=== PATIENT | female | born 1940 | race Caucasian/White ===

== ENCOUNTER 2018-01-27 08:39 | Inpatient (IN) | payer OTHER ==
[2018-01-20 15:19] VITALS: BMI 24.0
--- NOTE | 2018-01-21 13:13 | PAT Medication Instructions ---
Service Date Jan 21, 2018. Current Home Medication List Acetaminophen (Tylenol), Unknown Dose PO UD PRN for Pain Apixaban (Eliquis), 2.5 MG PO BID Bupropion (Wellbutrin-Xl), 150 MG PO QAM Cholecalciferol (Vitamin D3), 1 CAP PO QPM Clobetasol Propionate (Clobetasol Propionate Cream 0.05%), 1 APPLN EXT BID Cyanocobalamin (Vitamin B-12), Unknown Dose PO QAM Ferrous Sulfate (Kp Ferrous Sulfate), 1 TAB PO BID Furosemide (Lasix), 40 MG PO QAM Hydroxyzine Pamoate (Vistaril), 1 CAP PO BID Losartan Potassium (Cozaar), 50 MG PO QAM Magnesium Oxide (Mag-Ox), 400 MG PO BID Metoprolol Tartrate (Lopressor) (Lopressor), 50 MG PO BID Mupirocin 2% (Bactroban 2%), 1 APPLN EXT BID Pantoprazole (Pantoprazole Sodium), 1 TAB PO QAM Pitavastatin Calcium (Livalo), 1 MG PO QPM Potassium Ext Rel (Klor-Con), 20 MEQ PO QAM Rosuvastatin Calcium (Rosuvastatin Calcium), Unknown Dose PO BID Triamcinolone Acetonide (Topic (Triamcinolone Acet 0.025%), Unknown Dose TOP UD PRN for PRN Zinc Sulfate (Zinc Sulfate), 220 MG PO QAM Medication Instructions For Your Scheduled Surgery -Check with your surgeon and insole taper for instructions for: Apixaban (Eliquis), 2.5 MG PO BID *MUST BE HELD FOR AT LEAST 72 HOURS FOR SPINAL ANESTHESIA - Hold the following medications 24 hours prior to surgery: Clobetasol Propionate (Clobetasol Propionate Cream 0.05%), 1 APPLN EXT BID Mupirocin 2% (Bactroban 2%), 1 APPLN EXT BID Triamcinolone Acetonide (Topic (Triamcinolone Acet 0.025%), Unknown Dose TOP UD PRN for PRN - Hold the following medications the morning of surgery: Cyanocobalamin (Vitamin B-12), Unknown Dose PO QAM Ferrous Sulfate (Kp Ferrous Sulfate), 1 TAB PO BID Furosemide (Lasix), 40 MG PO QAM Losartan Potassium (Cozaar), 50 MG PO QAM Magnesium Oxide (Mag-Ox), 400 MG PO BID Potassium Ext Rel (Klor-Con), 20 MEQ PO QAM Zinc Sulfate (Zinc Sulfate), 220 MG PO QAM - Take the following medications the morning of surgery with a sip of water: Acetaminophen (Tylenol), Unknown Dose PO UD PRN for Pain (if needed, may be taken up to four hours before surgery) Bupropion (Wellbutrin-Xl), 150 MG PO QAM Hydroxyzine Pamoate (Vistaril), 1 CAP PO BID Metoprolol Tartrate (Lopressor) (Lopressor), 50 MG PO BID Pantoprazole (Pantoprazole Sodium), 1 TAB PO QAM Rosuvastatin Calcium (Rosuvastatin Calcium), Unknown Dose PO BID - Take the following medications as scheduled the night before surgery: Acetaminophen (Tylenol), Unknown Dose PO UD PRN for Pain (if needed) Cholecalciferol (Vitamin D3), 1 CAP PO QPM Ferrous Sulfate (Kp Ferrous Sulfate), 1 TAB PO BID Hydroxyzine Pamoate (Vistaril), 1 CAP PO BID Magnesium Oxide (Mag-Ox), 400 MG PO BID Metoprolol Tartrate (Lopressor) (Lopressor), 50 MG PO BID Pitavastatin Calcium (Livalo), 1 MG PO QPM Rosuvastatin Calcium (Rosuvastatin Calcium), Unknown Dose PO BID If you have any questions please call us at [phone] or [phone] or [phone]
--- NOTE | 2018-01-21 14:27 | DIAGNOSTIC IMAGING REPORT ---
CHEST 2 VIEWS ROUTINE CLINICAL HISTORY: PAT preoperative evaluation COMPARISON STUDY: No previous studies for comparison. FINDINGS: Old rib fractures bilaterally. These are considered healed. Minimal associated pleural reactive change. Mild emphysematous change. No acute infiltrate. IMPRESSION: Chronic change. No acute process. The above report was generated using voice recognition software. It may contain grammatical, syntax or spelling errors. Electronically signed by: Tee Ho M.D. 01/21/2018 2:26 PM Dictated Date/Time: 01/21/2018 2:25 PM
[2018-01-21 14:51] LABS: BASO % 0.5 %; BASO ABS # 0.05 K/uL (0-0.2); EOS % 21.3 %; EOS ABS # 2.18 K/uL (0-0.5); HEMATOCRIT 32.2 % (37-47); HEMOGLOBIN 10.2 g/dL (12.0-16.0); IG# 0.03 K/uL (0.00-0.02); LYMPH % 9.5 %; LYMPH ABS # 0.97 K/uL (1.2-3.4); MEAN CELL VOLUME 98.5 fL (80-100); MEAN CORPUSCULAR HEMOGLOBIN 31.2 pg (25-34); MEAN CORPUSCULAR HGB CONC 31.7 g/dl (32-36); MEAN PLATELET VOLUME 8.5 fL (7.4-10.4); MONO % 9.2 %; MONO ABS # 0.94 K/uL (0.11-0.59); NEUT % 59.2 %; NEUT ABS # 6.06 K/uL (1.4-6.5); PLATELET COUNT 298 K/uL (130-400); RED CELL DISTRIBUTION WIDTH SD 57.8 fL (36.4-46.3); WHITE BLOOD COUNT 10.23 K/uL (4.8-10.8)
[2018-01-21 14:59] LABS: CALCIUM 9.5 mg/dl (8.5-10.1); CREATININE 1.14 mg/dl (0.60-1.20); POTASSIUM 5.2 mmol/L (3.5-5.1)
[2018-01-21 15:02] LABS: PTT PATIENT 30.1 SECONDS (21.0-31.0)
--- NOTE | 2018-01-23 11:58 | HISTORY & PHYSICAL EXAMINATION ---
DATE OF ADMISSION: 01/27/2018 CHIEF COMPLAINT: Persistent right pain, discomfort and nonunion after distal femur fracture. HISTORY OF PRESENT ILLNESS: Patient is a 77-year-old female from [place] who presents for surgical treatment of her right leg. She has a pretty complex history over the past year related to this right leg. She had sustained a distal femur fracture from a fall back in February. She was seen in [place] and underwent ORIF with bone grafting of the right distal femur that got infected. Apparently this is a pseudomonas infection. She was referred to [facility] where she underwent hardware removal in April of last year and then external fixation placement. The external fixator was then taken off later. She continues to have persistent pain, discomfort and inability to get around. The fracture never healed. She has been through extensive antibiotic treatment and now off antibiotics. Her cultures did grow out Pseudomonas but has been off antibiotics for a couple months. She can ambulate. She developed ulcers on her right heel and Achilles area. She now presents for definitive treatment/amputation. We talked about treatments in the past and I do not think she is really a candidate for anything else. A hinged knee replacement would be possible but with her significant history of infection, elevated sed rate and C-reactive protein and sores on her Achilles I do not think this is appropriate intervention. PAST MEDICAL HISTORY: Significant for: 1. Hypertension. 2. Elevated cholesterol. 3. Gastroesophageal reflux disease. 4. Easy bruising, on Eliquis for DVT prophylaxis only. PAST SURGICAL HISTORY: Include: 1. Right ankle fracture surgery. 2. T and A. 3. D and C. 4. Right femur surgery x3. ALLERGIES: CODEINE AND ALL NARCOTICS WHICH CAUSE RESPIRATORY DEPRESSION. CURRENT MEDICATIONS: Include 1. Hydroxyzine 25 mg twice a day. 2. Triamcinolone cream topically. 3. Iron sulfate 325 twice a day. 4. Zinc sulfate 220 once a day. 5. Magnesium oxide 400 mg twice a day. 6. Metoprolol 50 mg twice a day. 7. Vitamin D3. 8. Furosemide 40 mg in the morning. 9. Losartan 50 mg a day. 10. Potassium chloride 20 mEq a day. 11. Eliquis 2.5 mg twice a day. 12. Vitamin B12. 13. Clobetasol cream. 14. Bactroban cream. 15. Wellbutrin 150 mg a day. 16. Rosuvastatin 5 mg. 17. Livalo 1 mg a day. SOCIAL HISTORY: A 77-year-old female. Patient is from [place]. with 3 children. Rare alcohol intake. FAMILY HISTORY: Significant for heart disease. REVIEW OF SYSTEMS: Negative for diabetes. Denies any current chest pain or shortness of breath. No recent fevers, drainage or redness around her leg. No history of DVT, but she is on Eliquis prophylactically. PHYSICAL EXAMINATION: GENERAL: Physical exam shows frail elderly female, looks older than her stated age. HEENT: Benign. NECK: Supple. No lymphadenopathy. LUNGS: Clear to auscultation. HEART: Has a regular rate and rhythm. ABDOMEN: Soft, nontender, nondistended. EXTREMITIES: Grossly neurovascularly intact except as follows: Examination of the right leg reveals the patient comes in a wheelchair. She has multiple scars around her leg, particularly in the lateral side with a very puckered scarred lateral incision about correction up her femur. There is no real redness and warmth. There is obvious deformity to her leg with a prominent anterior lateral. She cannot really bend her knee much at all. She can dorsiflex and plantarflex her foot appropriately. She does have a large eschar about 5 cm over her Achilles tendon area which is full thickness. There are no active signs of infection. X-RAYS: X-rays of the femur reveal a distal femoral nonunion. There are multiple holes from the previous ORIF as well as external fixation. There is some heterotopic bone and some bone around the fracture site. There is obvious deformity. She has got diffuse osteopenia. ASSESSMENT: A 77-year-old female, now 11 months out from a right distal femur fracture complicated by open reduction internal fixation and infection and a nonunion. She does not look clinically to have an infection at this point but her sed rate and C-reactive protein are still elevated. She got multiple sores on her foot. She has failed attempt at fixation. PLAN: We talked about treatment options. Options come down to amputation versus some attempt at reconstruction. With her history of infection, elevated sed rate and C-reactive protein and chronic sores on her foot, I think any reconstruction would be high risk and likely to be infected. After further discussion, we are going to proceed with above-knee amputation. We will take her to the operating room and do right above knee amputation. The risks and benefits of this procedure were explained to the patient include but not limited to DVT, PE, , infection, neurological injury, vascular injury, bleeding problem, pain, limited range of motion, stiffness, failure to relieve symptoms, incomplete relief of symptoms, need for further surgery in the future, fracture, leg length inequality, nerve palsy, persistent pain, drainage and recurrence of infection. She was made aware of all this including the recurrence of infection and she is aware and would like to proceed. Patient does have a questionable history of an MRSA infection in the past so we are going to use some vancomycin preoperatively. She will need a several-day stay in the hospital. She is anemic and it is highly likely she will need some degree of blood transfusion with this surgery. She is aware of this. We talked about taking her metoprolol the morning of surgery and holding her Lasix. She will continue iron supplementation. We will likely continue the Eliquis for about 2 weeks postop and that is probably about it.
[~2018-01-27] VITALS: Ht 158.8 cm; Wt 61.8 kg
[2018-01-27] VITALS (8 sets, daily range): BP systolic 107–141; BP diastolic 52–66; PULSE 70–91; TEMP 36–36.8; O2SAT 94–99; Ht 158.8 cm; Wt 61.8 kg
[~2018-01-27 08:39] MED LIST: ACET-1256 PO; APIX1TAB PO; BCTCR/30 EXT; BUPRTAB51 PO; CEFAZOLIN 2000MG IV PUSH 15 ML IV SCH; CHOL2000 PO; CLBCRM30 EXT; CYAN250T PO; FERR1TAB13 PO; FRS/40 PO; GENTAMICIN CONSULT ACTIVE PRN; GENTAMICIN INJ 80 MG in DEXTROSE 5% 100ML 100 ML IV SCH; HYDR25CA PO; LACTATED RINGER'S 1000ML 1,000 ML IV SCH; LACTATED RINGER'S 1000ML 500 ML IV SCH; LACTATED RINGER'S 1000ML IV SCH; LOSA50TA6 PO; MAGN400T6 PO; METO50TA16 PO; PANT40TA2 PO; PITA1TAB PO; POTA-639 PO; ROSU5TAB11 PO; TRMO2580 TOP; VANCOMYCIN 1GM/270ML NSS IV SCH; VANCOMYCIN CONSULT ACTIVE PRN; VANCOMYCIN IV 1,000 MG in SODIUM CHLORIDE 0.9% 250ML 250 ML IV STA; ZINC1CAP PO
--- NOTE | 2018-01-27 09:31 | History & Physical Bridge Note ---
H&P Re-Evaluation Bridge Note: I have examined the patient, reviewed the History & Physical and in the interval since the performance of the History & Physical I have noted the following changes of clinical significance: No changes noted
[2018-01-27 09:34] LABS: CALCIUM 9.7 mg/dl (8.5-10.1); CREATININE 1.35 mg/dl (0.60-1.20); POTASSIUM 5.3 mmol/L (3.5-5.1)
[2018-01-27] MEDS ORDERED: ATROPINE SULFATE 0.1 MG/ML 5ML SYR IV PRN (09:45)
[2018-01-27] MEDS ORDERED: ONDANSETRON INJ 2 MG/ML 2 ML VIAL IV PRN ×2 (09:45→13:45)
[2018-01-27] MEDS ORDERED: FENTANYL CITRATE INJ 50 MCG/1 ML 2 ML VIAL IV PRN (09:45)
[2018-01-27] MEDS ORDERED: EpHEDrine SULFATE INJ 50 MG/ML AMP IV PRN (09:45)
[2018-01-27] MEDS ORDERED: ROPIVACAINE 0.5% 5 MG/ML 30 ML VIAL ONE (11:02)
[2018-01-27] MEDS ORDERED: FENTANYL CITRATE INJ 50 MCG/1 ML 2 ML VIAL ONE ×2 (11:07→12:27)
[2018-01-27] MEDS ORDERED: BUPIVACAINE/EPINEPHRINE 0.5% MPF 1:200,000 30 ML VIAL ONE (11:33)
[2018-01-27] MEDS ORDERED: BACITRACIN 50000 UNIT VIAL ONE (11:35)
[2018-01-27] MEDS ORDERED: ONDANSETRON INJ 2 MG/ML 2 ML VIAL ONE (12:46)
[2018-01-27] MEDS ORDERED: PROPOFOL IV EMULSION 10 MG/ML 20 ML VIAL ONE (12:46)
[2018-01-27] MEDS ORDERED: LIDOCAINE HCL 2% 2 ML VIAL (20MG/ML) ONE (12:46)
[2018-01-27] MEDS ORDERED: VASOPRESSIN 20 UNIT/ML VIAL ONE (12:47)
[2018-01-27] MEDS ORDERED: PHENYLEPHRINE 100MCG/ML 5ML SYR ONE (12:47)
--- NOTE | 2018-01-27 13:14 | Anesthesiology Progress Note ---
Anesthesia Progress Note Date of Service Jan 27, 2018. Progress Notes Arterial line placed in OR at 1235 in preparation for right AKA with Dr. Harris. Left and right wrist prepped with chlorhexidine. Attempts made on left and write arm with final successful placement achieved in the left radial. During this attempt there was no return of pulsatile flow despite US verification of placement, therefore, catheter advanced through artery and then withdrawn until pulsatile flow. Catheter then threaded using seldinger. Site covered with occlusive dressing and taped in place. Waveform consistent with correct arterial placement. After placement, fingers of right hand had normal perfusion. Patient tolerated procedure well without complications. Haylee Bush MD, PhD
--- NOTE | 2018-01-27 13:38 | [facility] Post Operative Brief Note ---
Immediate Operative Summary Operative Date Jan 27, 2018. Pre-Operative Diagnosis Right distal femur leg non-union Post-Operative Diagnosis Same Procedure(s) Performed Right above knee amputation Surgeon Dr. Major Harris Policy Services Representative Surgeon(s) Lance Starks PA-C Estimated Blood Loss 150cc Findings Consistent with Post-Op Diagnosis Specimens A. Right lower leg Drains None Anesthesia Type General Regional Complication(s) none Disposition Accompanied Pt To Recover: no Disposition: Recovery Room / PACU Overlapping Procedure I was present for: the critical portions of procedure. I was immediately available: during the entire case
[2018-01-27] MEDS ORDERED: POTASSIUM CHLORIDE INJ 10 MEQ in SODIUM CHLORIDE 0.9% 1000ML 1,000 ML IV SCH (13:41)
[2018-01-27] MEDS ORDERED: BISACODYL 10 MG SUPP PR PRN (13:45)
[2018-01-27] MEDS ORDERED: METOCLOPRAMIDE HCL INJ 5 MG/ML 2 ML VIAL IV PRN (13:45)
[2018-01-27] MEDS ORDERED: VANCOMYCIN CONSULT ACTIVE PRN (13:45)
[2018-01-27] MEDS ORDERED: DiphenhydrAMINE HCL 50 MG/ML VIAL IV PRN (13:45)
[2018-01-27] MEDS ORDERED: VANCOMYCIN IV 0 MG in SODIUM CHLORIDE 0.9% 500ML 500 ML IV SCH (13:45)
[2018-01-27] MEDS ORDERED: MAGNESIUM HYDROXIDE SUSP 30 ML UDC PO PRN (13:45)
[2018-01-27] MEDS ORDERED: ALUMINUM/MAGNESIUM/SIMETH (MAALOX MAX) 30 ML UDC PO PRN (13:45)
[2018-01-27] MEDS ORDERED: GENTAMICIN CONSULT ACTIVE PRN (14:00)
--- NOTE | 2018-01-27 14:35 | Anesthesiology Progress Note ---
Anesthesia Post Op Note Date & Time Jan 27, 2018 at 14:33 Vital Signs Pain Intensity: 0 Vital Signs Past 12 Hours Date Time Temp Pulse Resp B/P (MAP) Pulse Ox O2 Delivery O2 Flow Rate FiO2 01/27/18 14:20 36.2 76 2 137/58 95 Nasal Cannula 2 01/27/18 14:04 75 17 01/27/18 14:04 75 17 99 01/27/18 14:02 150/48 01/27/18 13:59 73 14 01/27/18 13:59 73 14 99 01/27/18 13:56 146/46 01/27/18 13:54 72 16 01/27/18 13:54 71 16 99 01/27/18 13:51 139/47 01/27/18 13:49 73 13 100 01/27/18 13:49 72 13 01/27/18 13:45 155/56 01/27/18 13:44 36.2 73 16 155/56 100 Oxymask 10 01/27/18 09:24 36.4 70 18 141/64 95 Room Air Notes Mental Status: alert / awake / arousable, participated in evaluation Pt Amnestic to Procedure: Yes Nausea / Vomiting: adequately controlled Pain: adequately controlled Airway Patency, RR, SpO2: stable & adequate BP & HR: stable & adequate Hydration State: stable & adequate Anesthetic Complications: no major complications apparent Anesthetic Complications: Block functioning well and patient denies pain. Pt is also fully oriented to person, place and time, including today's date and is able to tell what procedure she just had done. (Family was concerned about anesthesia induced confusion in the past, but patient did not have any evidence of confusion in PACU.)
[2018-01-27] MEDS: FERROUS GLUCONATE 324 MG TAB PO SCH (18:58)
[2018-01-27] MEDS: GENTAMICIN INJ 80 MG in DEXTROSE 5% 100ML 100 ML IV SCH (20:10)
[2018-01-27] MEDS: SODIUM CHLORIDE 0.9% 1000ML 1,000 ML IV SCH (20:11)
[2018-01-27] MEDS: ASPIRIN 81 MG ECTAB PO SCH (20:21)
[2018-01-27] MEDS: CHOLECALCIFEROL 1000 INTER.UNIT TAB PO SCH (20:21)
[2018-01-27] MEDS: MAGNESIUM OXIDE 400 MG TAB PO SCH (20:22)
[2018-01-27] MEDS: METOPROLOL TARTRATE 50 MG TAB PO SCH (20:23)
[2018-01-27] MEDS: MUPIROCIN 2% OINT 22 GM TUBE EXT SCH (20:23)
[2018-01-27] MEDS ORDERED: [UNRECOGNIZED DRUG - OTHER] EXT SCH (21:00)
[2018-01-27] MEDS ORDERED: PITAVASTATIN CALCIUM 1 MG PO SCH (21:00)
[2018-01-27] MEDS ORDERED: hydrOXYzine HCL 25 MG TAB PO SCH (21:00)
[2018-01-27] MEDS ORDERED: APPL EXT SCH (21:00)
[2018-01-27] MEDS ORDERED: CLOBETASOL PROPIONATE EXT SCH (21:00)
[2018-01-27] MEDS: hydrOXYzine HCL 25 MG TAB PO SCH (21:26)
[2018-01-27] MEDS: ACETAMINOPHEN 500 MG TAB PO SCH (21:40)
[2018-01-27] MEDS ORDERED: VANCOMYCIN IV 1,000 MG in SODIUM CHLORIDE 0.9% 250ML 250 ML IV ONE (22:00)
[2018-01-28 03:16] VITALS: BP 136/55; PULSE 84; TEMP 36.8; O2SAT 93
[2018-01-28] MEDS: GENTAMICIN INJ 80 MG in DEXTROSE 5% 100ML 100 ML IV SCH (04:41)
[2018-01-28] MEDS: ACETAMINOPHEN 500 MG TAB PO SCH ×3 (04:42→20:11)
[2018-01-28 06:58] LABS: HEMATOCRIT 26.7 % (37-47); HEMOGLOBIN 8.4 g/dL (12.0-16.0); MEAN CELL VOLUME 99.3 fL (80-100); MEAN CORPUSCULAR HEMOGLOBIN 31.2 pg (25-34); MEAN CORPUSCULAR HGB CONC 31.5 g/dl (32-36); MEAN PLATELET VOLUME 8.2 fL (7.4-10.4); PLATELET COUNT 219 K/uL (130-400); RED CELL DISTRIBUTION WIDTH CV 15.5 % (11.5-14.5); RED CELL DISTRIBUTION WIDTH SD 55.5 fL (36.4-46.3); WHITE BLOOD COUNT 10.51 K/uL (4.8-10.8)
--- NOTE | 2018-01-28 07:19 | OPERATIVE REPORT ---
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 PROCEDURE PERFORMED: Right above-knee amputation. COMPLICATIONS: None. ESTIMATED BLOOD LOSS: 150 mL TOURNIQUET TIME: 31 minutes at 300 mmHg. ANESTHESIA: General with a femoral nerve block. OPERATIVE INDICATIONS: The patient is a 77-year-old female who sustained an injury to her right distal femur just about a year ago. She underwent ORIF and bone grafting and developed chronic pseudomonas infection. She has multiple operations since then to try and clean this out to get rid of the infection, and get bone to heal which were unsuccessful. She has developed significant heel sores and full thickness ulcers over her Achilles tendon and around her foot. Patient is now indicated for above-knee amputation. OPERATIVE PROCEDURE: Patient was taken to the operating room, identified and placed on the operating table in supine position. All contact areas were appropriately padded. IV antibiotics were provided. We gave her vancomycin due to her history of MRSA infection in the past as well as gentamicin due to the history of pseudomonas infection. The right leg was then prepped and draped in the usual sterile fashion. The right leg was elevated and exsanguinated using Esmarch and tourniquet was placed at 350 mmHg. I then measured out the level of resection to make it so it was at least 12 cm above the knee joint to allow for a prosthesis if needed and out of the infection site. A fish mouth incision was then drawn on her skin with appropriately length flaps such that the flaps were at least as long and a little longer than half the anteroposterior diameter of the soft tissue envelope at the resection level. Incision was then made. I made full thickness cut directly down to the bone. The anterior flap was thru the the quad tendon down to the bone and then this was dissected right off the bone and lifted anteriorly as an entire full thickness flap. I did a similar procedure to the posterior aspect of the leg and then I made a saw cut at the level of bone resection. I then used a saw to create a relief to the anterolateral side of the femur to decrease the prominence at this site. I then identified the femoral artery and vein. I dissected out and then placed two 2-0 silk suture and ligatures around the end of it and then cut this. I also identified the sciatic nerve. I suture ligated this and then hold some tension on it and cut it and allowed it to retract. Several other small vessels were also suture ligated and cauterized and allowed to retract. Some superficial nerves were also identified, traction was applied, and I just transected these and let them retract proximally. I then took the posterior musculature and cut that about a centimeter distal to the bone and allowed it to retract a little bit. Once this was complete, I irrigated the wound extensively. I drilled some bone holes in the posterior aspect of the femur to allow for some tension myodesis to the posterior musculature. The tourniquet was then let down for a tourniquet time of 31 minutes. Hemostasis was assured with use of electrocautery. I then placed #1 Vicryl sutures to the posterior hamstring tendons as well as the abductor tendons and tied this to the posterior femoral bone for myodesis effect. I took the quad tendon and the anterior musculature and I sewed it over the end of the bone with #1 Vicryl suture to the previous fascia. Once this was complete, I then completed this both medially and laterally. We then closed the skin incision with 3-0 nylon suture in a simple fashion. The leg was then cleaned and dried and a sterile dressing of Xeroform, 4 x 4s, sterile Kerlix wrap, sterile cast padding, Patrice bandage were then applied. The patient then brought out of general anesthesia and transferred to the recovery room in stable condition. The patient tolerated the procedure well with no complications. All needle and sponge counts were correct at the end of the operation. I attest to the content of the Intraoperative Record and any orders documented therein. Any exceptions are noted below. GARY
[2018-01-28 07:30] LABS: CALCIUM 8.5 mg/dl (8.5-10.1); CREATININE 0.83 mg/dl (0.60-1.20); POTASSIUM 4.8 mmol/L (3.5-5.1)
[2018-01-28 08:12] VITALS: BP 130/56; PULSE 82; TEMP 36.5; O2SAT 92
[2018-01-28] MEDS: MUPIROCIN 2% OINT 22 GM TUBE EXT SCH ×2 (09:00→20:56)
[2018-01-28] MEDS ORDERED: PANTOprazole SOD 40 MG TAB PO SCH (09:00)
[2018-01-28] MEDS: MAGNESIUM OXIDE 400 MG TAB PO SCH ×2 (09:22→21:02)
[2018-01-28] MEDS: MULTIVITAMIN TAB PO SCH (09:22)
[2018-01-28] MEDS: hydrOXYzine HCL 25 MG TAB PO SCH ×2 (09:23→21:01)
[2018-01-28] MEDS: ASPIRIN 81 MG ECTAB PO SCH ×2 (09:23→21:02)
[2018-01-28] MEDS: FUROSEMIDE 40 MG TAB PO SCH (09:23)
[2018-01-28] MEDS: LOSARTAN POTASSIUM 50 MG TAB PO SCH (09:24)
[2018-01-28] MEDS: PANTOprazole SOD 40 MG TAB PO SCH (09:24)
[2018-01-28] MEDS: METOPROLOL TARTRATE 50 MG TAB PO SCH ×2 (09:25→21:02)
[2018-01-28] MEDS: BuPROPion XL 150 MG TABCR PO SCH (09:25)
[2018-01-28] MEDS: FERROUS GLUCONATE 324 MG TAB PO SCH ×3 (09:25→17:54)
[2018-01-28] MEDS: ZINC SULFATE 220 MG CAP PO SCH (09:26)
--- NOTE | 2018-01-28 09:26 | Anesthesiology Progress Note ---
Anesthesia Post Op Note Date & Time Jan 28, 2018 at 09:25 Vital Signs Pain Intensity: 0.0 Vital Signs Past 12 Hours Date Time Temp Pulse Resp B/P (MAP) Pulse Ox O2 Delivery O2 Flow Rate FiO2 01/28/18 08:12 36.5 82 20 130/56 (80) 92 Room Air 01/28/18 03:16 36.8 84 16 136/55 (82) 93 Room Air 01/28/18 00:00 Room Air 01/27/18 23:05 36.3 16 123/61 (81) 96 Room Air Notes Mental Status: alert / awake / arousable, participated in evaluation Pt Amnestic to Procedure: Yes Nausea / Vomiting: adequately controlled Pain: adequately controlled Airway Patency, RR, SpO2: stable & adequate BP & HR: stable & adequate Hydration State: stable & adequate Neuraxial Anesthesia: sensory block resolved Anesthetic Complications: no major complications apparent
[2018-01-28] MEDS: SODIUM CHLORIDE 0.9% 1000ML 1,000 ML IV SCH ×2 (09:29→15:40)
[2018-01-28 11:54] VITALS: O2SAT 92
[2018-01-28 14:18] VITALS: BP 130/56; PULSE 82; O2SAT 92
--- NOTE | 2018-01-28 14:35 | PROGRESS NOTE ---
DATE: 01/28/2018 SUBJECTIVE: A 77-year-old white female postop day 1 from a right above knee amputation. She is doing pretty well. She is just taking Tylenol, does not do well with other pain medicine. She rates her most severe pain at a 5. Denies any chest pain or shortness of breath. Not feeling dizzy or lightheaded. In general, feeling quite well. OBJECTIVE: VITAL SIGNS: Temperature 36.5. Vital signs stable. GENERAL: Physical examination reveals a pleasant elderly female. She is sitting up in her bedside chair and looks comfortable. LUNGS: Clear to auscultation. HEART: Regular rate and rhythm. ABDOMEN: Soft, nontender, nondistended. EXTREMITIES: Grossly neurovascularly intact except as follows: Examination of the right leg reveals the dressing to be in place. Just a trace bit of bloody drainage. She is neurovascularly stable. LABORATORY DATA: Hemoglobin is 8.4. Hematocrit 26.7. Electrolytes are stable. Creatinine is actually improved. ASSESSMENT: A 77-year-old white female postop day 1 from right above knee amputation for chronic distal femoral nonunion with history of infection, doing well. Pain is reasonably well controlled. Does not do well with anything other than Tylenol. Hemoglobin is low, but she is asymptomatic. PLAN: 1. DVT prophylaxis including thigh-high TEDs, SCDs, and aspirin. We are going to stop her Eliquis as I do not think it is necessary at this time. 2. PT and OT. Will work on transfers. 3. Anemia. Currently, asymptomatic. Will continue iron supplementation. 4. Disposition: She is hoping to be discharged home with home health once adequately recovered.
[2018-01-28 15:27] VITALS: BP 106/59; PULSE 75; TEMP 36.5; O2SAT 95
[2018-01-28] MEDS: CHOLECALCIFEROL 1000 INTER.UNIT TAB PO SCH (21:00)
[2018-01-28] MEDS ORDERED: ACET-24 PO (21:36)
[2018-01-28] MEDS ORDERED: ASPI-461 PO (21:36)
--- NOTE | 2018-01-28 21:39 | Discharge Instructions ---
Discharge Instructions Date of Service Jan 28, 2018. Admission Reason for Admission: Right Femur Non-Union Discharge Discharge Diagnosis / Problem: Right Above Knee Amputation Discharge Goals Goal(s): Decrease discomfort, Improve disease control, Therapeutic intervention Activity Recommendations Activity Limitations: per Instructions/Follow-up section . Instructions / Follow-Up Instructions / Follow-Up Keep dressing and bandage clean, dry, and in place until return to clinic appointment. Return appointment with orthopedics 2 weeks post-operatively. Current Hospital Diet Patient's current hospital diet: Regular Diet Discharge Diet Recommended Diet: Regular Diet Procedures Procedures Performed: Right above knee amputation Pending Studies Studies pending at discharge: no Medical Emergencies . Who to Call and When: Medical Emergencies: If at any time you feel your situation is an emergency, please call 911 immediately. . Non-Emergent Contact Non-Emergency issues call your: Surgeon . "Provider Documentation" section prepared by Major Harris. .
[2018-01-28 22:53] VITALS: BP 122/50; PULSE 91; TEMP 37.1; O2SAT 93
[2018-01-29] MEDS: ACETAMINOPHEN 500 MG TAB PO SCH ×2 (06:04→14:30)
[2018-01-29 06:51] LABS: HEMATOCRIT 25.6 % (37-47); HEMOGLOBIN 8.2 g/dL (12.0-16.0); MEAN CELL VOLUME 98.1 fL (80-100); MEAN CORPUSCULAR HEMOGLOBIN 31.4 pg (25-34); MEAN PLATELET VOLUME 7.9 fL (7.4-10.4); PLATELET COUNT 198 K/uL (130-400); RED CELL DISTRIBUTION WIDTH CV 15.3 % (11.5-14.5); RED CELL DISTRIBUTION WIDTH SD 54.4 fL (36.4-46.3); WHITE BLOOD COUNT 9.75 K/uL (4.8-10.8)
[2018-01-29 07:26] LABS: CALCIUM 8.3 mg/dl (8.5-10.1); CREATININE 0.81 mg/dl (0.60-1.20); POTASSIUM 4.1 mmol/L (3.5-5.1)
[2018-01-29 07:57] VITALS: BP 132/55; PULSE 80; TEMP 36.9; O2SAT 94
--- NOTE | 2018-01-29 08:08 | PROGRESS NOTE ---
DATE: 01/29/2018 SUBJECTIVE: A 77-year-old white female postop day 2 from right above knee amputation. She is doing well. Pain is controlled. No chest pain or shortness of breath. She really wants to go home. OBJECTIVE: VITAL SIGNS: Temperature is 37.1. Vital signs stable. PHYSICAL EXAMINATION: GENERAL: Reveals a pleasant elderly female. She is lying in bed and looks comfortable. EXTREMITIES: Examination of the right leg reveals the dressing to be clean, dry and in place. No significant drainage. LABORATORY DATA: Hemoglobin 8.2. Hematocrit 25.6. Electrolytes are stable. ASSESSMENT: A 77-year-old white female postoperative day 2 from a right above knee amputation, doing well. Pain is controlled. She is anemic, but without symptoms. She has a chronic underlying anemia. PLAN: 1. DVT prophylaxis including thigh-high TEDs, SCDs, and aspirin twice a day. 2. PT/OT. Transfers essentially only as she is unable to weightbear on this right leg. 3. Anemia. Continue iron supplementation. 4. Pain control, doing pretty well with current pain regimen. We will stick with Tylenol and she is doing fine with that. 5. Disposition: Plan to discharge to home with some home health.
[2018-01-29 08:11] VITALS: O2SAT 94
[2018-01-29] MEDS: FERROUS GLUCONATE 324 MG TAB PO SCH ×2 (08:30→11:48)
[2018-01-29] MEDS: MUPIROCIN 2% OINT 22 GM TUBE EXT SCH (08:40)
[2018-01-29] MEDS: ZINC SULFATE 220 MG CAP PO SCH (08:41)
[2018-01-29] MEDS: FUROSEMIDE 40 MG TAB PO SCH (08:41)
[2018-01-29] MEDS: LOSARTAN POTASSIUM 50 MG TAB PO SCH (08:41)
[2018-01-29] MEDS: PANTOprazole SOD 40 MG TAB PO SCH (08:41)
[2018-01-29] MEDS: MULTIVITAMIN TAB PO SCH (08:41)
[2018-01-29] MEDS: BuPROPion XL 150 MG TABCR PO SCH (08:41)
[2018-01-29] MEDS: hydrOXYzine HCL 25 MG TAB PO SCH (08:41)
[2018-01-29] MEDS: MAGNESIUM OXIDE 400 MG TAB PO SCH (09:37)
[2018-01-29] MEDS: ASPIRIN 81 MG ECTAB PO SCH (09:37)
[2018-01-29] MEDS: METOPROLOL TARTRATE 50 MG TAB PO SCH (09:37)
[2018-01-29 13:54] VITALS: BP 132/55; PULSE 80; TEMP 36.9; O2SAT 94
== END 2018-01-29 14:54 | disposition home health service (06) | DRG 475 ==
LOC: C.ACU 08:39 → C.MSN 13:52 → UNDOADMIN 13:52 → ENRESERV 14:11 → EDBEDREQ 14:48
PROVIDERS: ADMIT Orthopaedic Surgery Sports Medicine; ATTEND Orthopaedic Surgery Sports Medicine
PROC: 03HC33Z Insertion of Infusion Device into Left Radial Artery, Percutaneous Approach (ICD-10-PCS; 2018-01-27)
PROC: 0Y6C0Z3 Detachment at Right Upper Leg, Low, Open Approach (ICD-10-PCS; principal; 2018-01-27 11:15)
DX: S72.401K Unspecified fracture of lower end of right femur, subsequent encounter for closed fracture with nonunion (principal); L97.418 Non-pressure chronic ulcer of right heel and midfoot with other specified severity; W19.XXXD Unspecified fall, subsequent encounter; D64.9 Anemia, unspecified; I10 Essential (primary) hypertension; E78.00 Pure hypercholesterolemia, unspecified; Z86.14 Personal history of Methicillin resistant Staphylococcus aureus infection; Z86.19 Personal history of other infectious and parasitic diseases; Z98.890 Other specified postprocedural states; Z87.891 Personal history of nicotine dependence; Z79.899 Other long term (current) drug therapy; Z88.5 Allergy status to narcotic agent